=== PATIENT | male | born 1950 | race African-American/Black ===

== ENCOUNTER 2016-12-13 05:27 | Inpatient (IN) | payer MEDICARE, OTHER ==
[~2016-12-13] VITALS: Ht 185.4 cm; Wt 72.6 kg
--- NOTE | 2016-12-13 05:44 | Emergency Room Report ---
History of Present Illness General Chief Complaint: Chest Pain Source: Patient Present Illness HPI Is a 66-year-old male with history hypertension. He presents with chest pain awoke him up from sleep. Pain is substernal. Radiate to the left side. He said he felt hot and flushed. No diaphoresis. No exertional component. Exertion does not make it worse. Rated the pain is 10 out of 10. He called 911. EMS gave him nitroglycerin and aspirin. His pain is now down to 1/10. Denies any other complaint. Allergies: Coded Allergies: No Known Allergies (Unverified , 12/13/16) Patient History Past Medical History: see triage record, old chart reviewed, HTN Past Surgical History: other Pertinent Family History: none Social History: Denies: alcohol use, drug use, smoking Immunizations: other Reviewed Nursing Documentation: PMH: Agreed, PSxH: Agreed Nursing Documentation-PMH Hx Hypertension: Yes Hx Cancer: Yes - squamous cell carcinoma Review of Systems Eye: Denies: blurred vision, eye pain ENT: Denies: ear pain, nose congestion, throat swelling Respiratory: Denies: cough, shortness of breath Cardiovascular: Reports: chest pain, Denies: palpitations Gastrointestinal: Denies: abdominal pain, diarrhea, nausea, vomiting Musculoskeletal: Denies: back pain, joint pain Skin: Denies: rash Neurological: Denies: headache, numbness Endocrine: Denies: increased thirst, increased urine Hematologic/Lymphatic: Denies: easy bruising All Other Systems: negative except mentioned in HPI Physical Exam Vital Signs Date Time Temp Pulse Resp B/P Pulse Ox O2 Delivery O2 Flow Rate FiO2 12/13/16 05:28 97.5 85 14 146/97 98 Room Air vitals remarkable Sp02 EP Interpretation: reviewed, normal General Appearance: well appearing, no apparent distress, alert Head: normocephalic, atraumatic Eyes: bilateral eye EOMI, bilateral eye PERRL ENT: hearing grossly normal, normal pharynx Neck: full range of motion, supple, no meningismus Respiratory: chest non-tender, lungs clear, normal breath sounds Cardiovascular #1: regular rate, rhythm, no murmur Gastrointestinal: normal bowel sounds, non tender, no mass, no organomegaly, no bruit, non-distended Musculoskeletal: back normal, gait/station normal, normal range of motion Psychiatric: anxious Skin: warm/dry Medical Decision Making Diagnostic Impression: Primary Impression: Chest pain Qualified Codes: R07.9 - Chest pain, unspecified Additional Impression: ACS (acute coronary syndrome) ER Course Patient presents with chest pain. Pain resolved with nitroglycerin. Does have some nonspecific ST changes on EKG. We'll get for serial EKG, troponin and cardiac workup. Laboratory Tests Test 12/13/16 05:20 White Blood Count 4.5 K/UL (4.8-10.8) L Red Blood Count 5.22 M/UL (4.70-6.10) Hemoglobin 12.1 G/DL (14.2-18.0) L Hematocrit 39.0 % (42.0-52.0) L Mean Corpuscular Volume 75 FL (80-99) L Mean Corpuscular Hemoglobin 23.2 PG (27.0-31.0) L Mean Corpuscular Hemoglobin Concent 31.0 G/DL (32.0-36.0) L Red Cell Distribution Width 13.5 % (11.6-14.8) Platelet Count 141 K/UL (150-450) L Mean Platelet Volume 7.6 FL (6.5-10.1) Neutrophils (%) (Auto) 53.5 % (45.0-75.0) Lymphocytes (%) (Auto) 31.0 % (20.0-45.0) Monocytes (%) (Auto) 10.6 % (1.0-10.0) H Eosinophils (%) (Auto) 3.4 % (0.0-3.0) H Basophils (%) (Auto) 1.5 % (0.0-2.0) Sodium Level 142 mEQ/L (135-145) Potassium Level 3.5 mEQ/L (3.4-4.9) Chloride Level 106 mEQ/L (98-107) Carbon Dioxide Level 25 mEQ/L (20-30) Anion Gap 11 (5-15) Blood Urea Nitrogen 18 mg/dL (7-23) Creatinine 1.0 mg/dL (0.7-1.2) Estimat Glomerular Filtration Rate > 60 mL/min (>60) Glucose Level 111 mg/dL (74-106) H Calcium Level 8.1 mg/dL (8.6-10.2) L Total Bilirubin 0.3 mg/dL (0.0-1.2) Aspartate Amino Transf (AST/SGOT) 15 U/L (5-40) Alanine Aminotransferase (ALT/SGPT) 14 U/L (3-41) Alkaline Phosphatase 38 U/L (40-129) L Total Creatine Kinase 125 U/L (38-174) Creatine Kinase MB 1.8 ng/mL (< 6.7) Creatine Kinase MB Relative Index 1.4 Troponin I < 0.30 ng/mL (<=0.30) Total Protein 5.9 g/dL (6.6-8.7) L Albumin 3.9 g/dL (3.5-5.2) Globulin 2.0 g/dL Albumin/Globulin Ratio 1.9 (1.0-2.7) Lab Results Impression labs unremarkable EKG Diagnostic Results EKG Time: 05:43 EP Interpretation: 90 Rate: normal Rhythm: NSR ST Segments: other - NSST changes Rhythm Strip Diag. Results Rhythm Strip Time: 05:44 EP Interpretation: yes Rate: 88 Rhythm: NSR, no PVC's, no ectopy, other - Nonspecific ST changes Chest X-Ray Diagnostic Results Chest X-Ray Diagnostic Results : Chest X-Ray Ordered: Yes # of Views/Limited/Complete: 1 View Indication: Chest Pain EP Interpretation: Yes Interpretation: no consolidation, no effusion, no pneumothorax Impression: No acute disease Interpreting ER Provider: Electronically signed by Sumit Rosario MD Last Vital Signs Date Time Temp Pulse Resp B/P Pulse Ox O2 Delivery O2 Flow Rate FiO2 12/13/16 05:28 97.5 85 14 146/97 98 Room Air Status: improved Disposition: ADMITTED INPATIENT Condition: Serious SUMIT ROSARIO M.D. Dec 13, 2016 05:44
[2016-12-13 05:45] VITALS: BP 142/95
[2016-12-13 05:57] LABS: BASOPHILS % (AUTO) 1.5 % (0.0-2.0); EOSINOPHILS % (AUTO) 3.4 % (0.0-3.0); MEAN CORPUSCULAR HEMOGLOBIN 23.2 PG (27.0-31.0); MEAN CORPUSCULAR VOLUME 75 FL (80-99); MEAN PLATELET VOLUME 7.6 FL (6.5-10.1); MONOCYTES % (AUTO) 10.6 % (1.0-10.0); NEUTROPHILS % (AUTO) 53.5 % (45.0-75.0); PLATELET COUNT 141 K/UL (150-450); RED BLOOD COUNT 5.22 M/UL (4.70-6.10); RED CELL DISTRIBUTION WIDTH 13.5 % (11.6-14.8); WHITE BLOOD COUNT 4.5 K/UL (4.8-10.8)
[2016-12-13 06:08] LABS: ALANINE AMINOTRANSFERASE 14 U/L (3-41); ALBUMIN/GLOBULIN RATIO 1.9 (1.0-2.7); ANION GAP 11 (5-15); ASPARTATE AMINO TRANSFERASE 15 U/L (5-40); CALCIUM 8.1 mg/dL (8.6-10.2); CARBON DIOXIDE 25 mEQ/L (20-30); CHLORIDE 106 mEQ/L (98-107); GLOMERULAR FILTRATION RATE > 60 mL/min (>60); HEMOLYSIS 5; POTASSIUM 3.5 mEQ/L (3.4-4.9); SODIUM 142 mEQ/L (135-145); TOTAL PROTEIN 5.9 g/dL (6.6-8.7)
[2016-12-13 06:13] LABS: TROPONIN I < 0.30 ng/mL (<=0.30)
[2016-12-13 06:19] LABS: CKMB 1.8 ng/mL (< 6.7)
[2016-12-13] MEDS ORDERED: DIVALPROEX SOD500 MG PO (06:30)
[2016-12-13] MEDS ORDERED: NORVASC2.5 MG ORAL (06:30)
[2016-12-13] MEDS ORDERED: VITAMIN D1000 UNI1 ORAL (06:30)
[2016-12-13] MEDS ORDERED: MAGNESIUM400 M1 PO (06:30)
[2016-12-13] MEDS ORDERED: LISINOPRIL40 MG ORAL (06:30)
[2016-12-13] MEDS ORDERED: RIBOFLAVIN50 MG PO (06:30)
[2016-12-13] MEDS ORDERED: AMITRIPTYLINE25 MG ORAL (06:30)
[2016-12-13] MEDS ORDERED: ZOCOR20 M1 ORAL (06:30)
[2016-12-13 06:35] VITALS: BP 131/79
[2016-12-13 07:58] LABS: APPEARANCE,URINE CLEAR; KETONES,URINE 1+ (NEGATIVE); LEUKOCYTE ESTERASE ,URINE NEGATIVE (NEGATIVE); NITRITE,URINE NEGATIVE (NEGATIVE); PH,URINE 6 (4.5-8.0); PROTEIN,URINE NEGATIVE (NEGATIVE); UROBILINOGEN,URINE 1 MG/DL (0.0-1.0)
[2016-12-13 08:00] VITALS: BP 145/91
--- NOTE | 2016-12-13 09:37 | Diagnostic Imaging Report ---
Clinical history: As in header. Technique: Portable AP chest radiograph was obtained. Comparison: None Findings: The lungs are well inflated and clear. There is no pneumonia or pulmonary edema. There is no pleural effusion or pneumothorax. The cardiac and mediastinal silhouettes are normal in appearance. The bony thorax is unremarkable. Impression: No evidence of acute disease.
[2016-12-13 11:39] VITALS: BP 147/94
[2016-12-13] MEDS ORDERED: Nitroglycerin Subl 0.4mg tab (Bottle Of 25) SL PRN (15:00)
[2016-12-13] MEDS: Vitamin D 1000 IU Tab ORAL SCH (15:26)
[2016-12-13] MEDS: Lisinopril 20mg tab ORAL SCH (15:27)
[2016-12-13] MEDS: Magnesium Oxide 400mg tab ORAL SCH (15:28)
[2016-12-13 15:47] VITALS: BP 123/98
[2016-12-13] MEDS: Enoxaparin 40mg Inj SUBQ SCH (17:40)
[2016-12-13] MEDS ORDERED: Magnesium Oxide 400mg tab ORAL SCH (18:00)
[2016-12-13 18:03] LABS: TROPONIN I < 0.30 ng/mL (<=0.30)
--- NOTE | 2016-12-13 18:19 | Cardiology Progress Note ---
Assessment/Plan Assessment/Plan The patient is seen and examined, full consult will be dictated. Objective Last 24 Hour Vital Signs Date Time Temp Pulse Resp B/P Pulse Ox O2 Delivery O2 Flow Rate FiO2 12/13/16 16:00 64 12/13/16 15:47 97.0 68 18 123/98 98 Room Air 12/13/16 15:27 147/94 12/13/16 15:27 59 147/94 12/13/16 12:00 59 12/13/16 11:39 97.2 58 18 147/94 98 Room Air 12/13/16 10:35 97.7 12/13/16 10:04 59 14 143/82 97 Room Air 12/13/16 08:00 97.7 59 13 145/91 100 Room Air 12/13/16 06:35 77 17 131/79 98 Room Air 12/13/16 05:45 77 21 Room Air 12/13/16 05:45 97.5 77 20 142/95 98 Room Air 12/13/16 05:28 97.5 85 14 146/97 98 Room Air Laboratory Tests Test 12/13/16 05:20 12/13/16 07:45 12/13/16 16:57 White Blood Count 4.5 K/UL (4.8-10.8) L Red Blood Count 5.22 M/UL (4.70-6.10) Hemoglobin 12.1 G/DL (14.2-18.0) L Hematocrit 39.0 % (42.0-52.0) L Mean Corpuscular Volume 75 FL (80-99) L Mean Corpuscular Hemoglobin 23.2 PG (27.0-31.0) L Mean Corpuscular Hemoglobin Concent 31.0 G/DL (32.0-36.0) L Red Cell Distribution Width 13.5 % (11.6-14.8) Platelet Count 141 K/UL (150-450) L Mean Platelet Volume 7.6 FL (6.5-10.1) Neutrophils (%) (Auto) 53.5 % (45.0-75.0) Lymphocytes (%) (Auto) 31.0 % (20.0-45.0) Monocytes (%) (Auto) 10.6 % (1.0-10.0) H Eosinophils (%) (Auto) 3.4 % (0.0-3.0) H Basophils (%) (Auto) 1.5 % (0.0-2.0) Sodium Level 142 mEQ/L (135-145) Potassium Level 3.5 mEQ/L (3.4-4.9) Chloride Level 106 mEQ/L (98-107) Carbon Dioxide Level 25 mEQ/L (20-30) Anion Gap 11 (5-15) Blood Urea Nitrogen 18 mg/dL (7-23) Creatinine 1.0 mg/dL (0.7-1.2) Estimat Glomerular Filtration Rate > 60 mL/min (>60) Glucose Level 111 mg/dL (74-106) H Calcium Level 8.1 mg/dL (8.6-10.2) L Total Bilirubin 0.3 mg/dL (0.0-1.2) Aspartate Amino Transf (AST/SGOT) 15 U/L (5-40) Alanine Aminotransferase (ALT/SGPT) 14 U/L (3-41) Alkaline Phosphatase 38 U/L (40-129) L Total Creatine Kinase 125 U/L (38-174) Creatine Kinase MB 1.8 ng/mL (< 6.7) Creatine Kinase MB Relative Index 1.4 Troponin I < 0.30 ng/mL (<=0.30) < 0.30 ng/mL (<=0.30) Total Protein 5.9 g/dL (6.6-8.7) L Albumin 3.9 g/dL (3.5-5.2) Globulin 2.0 g/dL Albumin/Globulin Ratio 1.9 (1.0-2.7) Urine Color Yellow Urine Appearance Clear Urine pH 6 (4.5-8.0) Urine Specific Mccloud 1.015 (1.005-1.035) Urine Protein Negative (NEGATIVE) Urine Glucose (UA) Negative (NEGATIVE) Urine Ketones 1+ (NEGATIVE) H Urine Occult Blood Negative (NEGATIVE) Urine Nitrite Negative (NEGATIVE) Urine Bilirubin Negative (NEGATIVE) Urine Urobilinogen 1 MG/DL (0.0-1.0) H Urine Leukocyte Esterase Negative (NEGATIVE) Urine Opiates Screen Negative (NEGATIVE) Urine Barbiturates Screen Negative (NEGATIVE) Phencyclidine (PCP) Screen Negative (NEGATIVE) Urine Amphetamines Screen Negative (NEGATIVE) Urine Benzodiazepines Screen Negative (NEGATIVE) Urine Cocaine Screen Negative (NEGATIVE) Urine Marijuana (THC) Screen Negative (NEGATIVE) SAMI GRAYSON Dec 13, 2016 18:19
[2016-12-13 19:53] LABS: HEMOLYSIS 4; IRON 118 ug/dL (59-158); TOTAL IRON BINDING CAPACITY 294 ug/dL (250-400)
[2016-12-13 20:00] VITALS: BP 144/86
[2016-12-13] MEDS: Depakote 500mg tab ORAL SCH (21:00)
[2016-12-13] MEDS: LORazepam Inj 2mg/ml 1ml IV PRN (23:24)
[2016-12-13] MEDS: D5 1/2NS 1,000 ML IV SCH (23:30)
[2016-12-14] VITALS (7 sets, daily range): BP systolic 139–156; BP diastolic 82–100
--- NOTE | 2016-12-14 02:15 | History and Physical Report ---
DATE OF ADMISSION: 12/13/2016 SOURCE OF INFORMATION: Patient and EMR. HISTORY OF PRESENT ILLNESS: The patient is a pleasant 66-year-old white male. The patient presented with chest pain for the last one to two days. Pain located in the left-sided precordial area with radiation to the left arm, associated with sweating. At the time of evaluation, the patient appears comfortable, and seen in the emergency room. The patient denies palpitations. Denies loss of consciousness. Denies any severe headache. REVIEW OF SYSTEMS: All 12 elements of review of systems reviewed with the patient and pertinent positive and negative are as mentioned above. PAST SURGICAL HISTORY: Left-sided . 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 ALLERGIES: NKDA. SOCIAL HISTORY: Positive prior history of smoking. Negative for illicit drug abuse or alcohol abuse. The patient is . The patient has children. FAMILY HISTORY: Reviewed and noncontributory. PHYSICAL EXAMINATION: VITAL SIGNS: Blood pressure 140/90, temperature 97.4, pulse rate 50 to 65, respiratory rate 18, pulse oximetry 98% on room air. HEENT: Head and neck, atraumatic and normocephalic. CHEST: Clear to auscultation. HEART: S1 and S2. Regular rate and rhythm. ABDOMEN: Soft. No organomegaly. MUSCULOSKELETAL: No gross focal motor deficit. NEUROLOGY: The patient is awake, alert and oriented x3. LABORATORY AND DIAGNOSTIC DATA: Dated 12/13/2016 showed WBC 4.5, hemoglobin 12.1, platelets 141,000. Sodium 142, potassium 3.5, BUN 15, and creatinine 1. Calcium 8.1. Glucose 110. UA unremarkable. ASSESSMENT AND PLAN: 1. Chest pain in a patient with acute moderate risk for acute coronary syndrome. We will monitor. 2. Hypertension. 3. Hyperlipidemia. 4. History of squamous cell carcinoma of the laryngopharyngeal lesion status post completion of radiation. 5. Thrombocytopenia. 6. Anemia. 7. Gastrointestinal and deep vein thrombosis prophylaxis. PLAN OF CARE: Cardiology with Dr. Diaz is consulted. Continue with aspirin 325 mg. We Will obtain 2D echo. Nasal oxygen. Pain management. As needed nitroglycerin. Melba Ugarte M.D. DR: Nasir JOB#: [id number] CC:
[2016-12-14] MEDS: Vitamin D 1000 IU Tab ORAL SCH (08:27)
[2016-12-14] MEDS: Magnesium Oxide 400mg tab ORAL SCH (08:28)
[2016-12-14] MEDS: Lisinopril 20mg tab ORAL SCH (08:28)
[2016-12-14] MEDS: Enoxaparin 40mg Inj SUBQ SCH (08:33)
[2016-12-14 08:35] LABS: TROPONIN I < 0.30 ng/mL (<=0.30)
[2016-12-14 08:42] LABS: CHOLESTEROL/HDL RATIO 2.6 (3.3-4.4)
--- NOTE | 2016-12-14 11:25 | General Progress Note ---
Assessment/Plan Status: stable Assessment/Plan 1. Chest pain in a patient with acute moderate risk for acute coronary syndrome. We will monitor. 2. Hypertension. 3. Hyperlipidemia. 4. History of squamous cell carcinoma of the laryngopharyngeal lesion status post completion of radiation. 5. Thrombocytopenia. 6. Anemia. 7. Gastrointestinal and deep vein thrombosis prophylaxis. Plan: current cardiac montioring. Pending completion of cardiac workup will check FOBT Subjective ROS Limited/Unobtainable: No Constitutional: Reports: no symptoms HEENT: Reports: no symptoms Cardiovascular: Reports: chest pain Respiratory: Reports: no symptoms Allergies: Coded Allergies: No Known Allergies (Unverified , 12/13/16) Objective Last 24 Hour Vital Signs Date Time Temp Pulse Resp B/P Pulse Ox O2 Delivery O2 Flow Rate FiO2 12/14/16 08:29 71 150/95 12/14/16 08:28 150/95 12/14/16 08:00 71 12/14/16 08:00 97.7 71 20 150/95 99 Room Air 12/14/16 04:00 73 12/14/16 04:00 97.2 97 19 153/97 99 Room Air 12/14/16 00:00 97.0 65 22 146/82 98 Room Air 12/14/16 00:00 68 12/13/16 20:00 97.0 68 20 144/86 99 Room Air 12/13/16 20:00 68 12/13/16 16:00 64 12/13/16 15:47 97.0 68 18 123/98 98 Room Air 12/13/16 15:27 147/94 12/13/16 15:27 59 147/94 12/13/16 12:00 59 12/13/16 11:39 97.2 58 18 147/94 98 Room Air Intake and Output 12/13/16 12/14/16 19:00 07:00 Intake Total 240 ml 375 ml Balance 240 ml 375 ml Intake Oral 240 ml IV Total 375 ml # Voids 2 1 Laboratory Tests 12/13/16 16:57: Iron Level 118, Total Iron Binding Capacity 294, Percent Iron Saturation 40, Unsaturated Iron Binding 176, Troponin I < 0.30 12/14/16 07:35: Troponin I < 0.30, Ferritin 133, Triglycerides Level 176H, Cholesterol Level 129 , LDL Cholesterol 44L, HDL Cholesterol 50, Cholesterol/HDL Ratio 2.6L Height (Feet): 6 Height (Inches): 1.00 Weight (Pounds): 160 General Appearance: WD/WN EENT: PERRL/EOMI Neck: supple Cardiovascular: normal rate Respiratory/Chest: lungs clear Abdomen: soft Extremities: non-tender Neurologic: display department manager II-XII grossly normal Melba Ugarte MD Dec 14, 2016 11:24
--- NOTE | 2016-12-14 15:46 | Diagnostic Imaging Report ---
Indications: Chest pain, hypertension Technique: Single day single isotope protocol utilized. Initially, resting images obtained using IV administration 9.3 millicuries 99M technetium Myoview. Subsequently, patient underwent treadmill stress testing. See cardiology report for details. During adenosine infusion, IV administration 31.6 mCi 99 M technetium Myoview. SPECT and planar images obtained. SPECT images gated to 8 phases of the cardiac cycle were also obtained, and reformatted into cine images for evaluation of ejection fraction. Comparison: None Findings: Per cardiology report, patient experienced no symptoms. Cardiology report does not describe EKG findings. Patient reached peak heart rate 137 beats per minute, and excess of the target heart rate 132 beats per minute. Imaging demonstrates normal post stress perfusion, no fixed nor reversible perfusion defects. Normal cardiac chamber size.. Calculated post stress ejection fraction 61%. No wall motion abnormality demonstrated Impression: Nonischemic clinical response to pharmacologic stress, per cardiology report Ischemic electrocardiographic response to pharmacologic stress, per cardiology report No imaging findings to suggest ischemia, at level of stress achieved. Calculated post stress ejection fraction 61%
[2016-12-14] MEDS: D5 1/2NS 1,000 ML IV SCH (17:47)
--- NOTE | 2016-12-14 17:53 | Cardiology Report ---
APPROVED REPORT EXAM: Two-dimensional and M-mode echocardiogram with Doppler and color Doppler. INDICATION Chest Pain M-Mode DIMENSIONS IVSd1.1 (0.7-1.1cm)Left Atrium (MM)3.6 (1.6-4.0cm) LVDd4.6 (3.5-5.6cm)Aortic Root2.7 (2.0-3.7cm) PWd0.8 (0.7-1.1cm)Aortic Cusp Exc.1.7 (1.5-2.0cm) LVDs3.4 (2.5-4.0cm) PWs1.0 cm Technically difficult study due to poor acoustic windows. Normal left ventricular chamber size, systolic function and wall motion. Left ventricular ejection fraction estimated to be 55-60%. No left ventricular hypertrophy. Small posterior pericardial effusion pressing against right atrial wall. All other cardiac chamber sizes are within normal limits. Focal aortic valve sclerosis with adequate cusp excursion Thickened mitral valve leaflets with normal excursion. Mitral annulus and aortic root calcification. Pulmonic valve not well visualized. Normal tricuspid valve structure. IVC is normal in size with physiological collapse. Mobile IAS moving from left to right. A color flow and spectral Doppler study was performed and revealed: No aortic regurgitation. Trace mitral regurgitation. Left ventricular diastolic dysfunction grade 1. No tricuspid regurgitation. Tricuspid systolic velocities suggests peak right ventricular systolic pressure of 11 mmHg
--- NOTE | 2016-12-14 18:13 | Cardiology Report ---
APPROVED REPORT EKG Measurement Heart [id number] [place] [id number] Normal sinus rhythm Nonspecific ST and T wave abnormality Abnormal ECG
[2016-12-14] MEDS: Depakote 500mg tab ORAL SCH (21:11)
--- NOTE | 2016-12-14 23:57 | Cardiology Progress Note ---
Assessment/Plan Assessment/Plan 1. Atypical chest pain, awaiting report of the treadmill stress cardiolite test. 2. HTN, continue lisinopril and amlodipine. 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 Subjective Subjective Denies chest pain or SOB. SR at 75. Objective Last 24 Hour Vital Signs Date Time Temp Pulse Resp B/P Pulse Ox O2 Delivery O2 Flow Rate FiO2 12/14/16 20:09 98.2 76 20 148/98 97 Room Air 12/14/16 16:00 68 12/14/16 16:00 97.5 69 20 139/84 99 Room Air 12/14/16 12:00 97.2 62 20 143/100 97 Room Air 12/14/16 11:57 74 12/14/16 08:29 71 150/95 12/14/16 08:28 150/95 12/14/16 08:00 71 12/14/16 08:00 97.7 71 20 150/95 99 Room Air 12/14/16 04:00 73 12/14/16 04:00 97.2 97 19 153/97 99 Room Air 12/14/16 00:00 97.0 65 22 146/82 98 Room Air 12/14/16 00:00 68 Intake and Output 12/13/16 12/14/16 19:00 07:00 Intake Total 240 ml 375 ml Balance 240 ml 375 ml Intake Oral 240 ml IV Total 375 ml # Voids 2 1 2D Echo: LVEF 55-60%, Aneurysmal IAS, RVSP 11 mmHg Laboratory Tests Test 12/14/16 07:35 Ferritin 133 ng/mL (10-230) Troponin I < 0.30 ng/mL (<=0.30) Triglycerides Level 176 mg/dL (< 150) H Cholesterol Level 129 mg/dL (< 200) LDL Cholesterol 44 mg/dL (60-99) L HDL Cholesterol 50 mg/dL (> 60) Cholesterol/HDL Ratio 2.6 (3.3-4.4) L Objective HEENT: atraumatic and normocephalic, PERRLA, EOMI NECK: Negative JVD, no carotid bruit CHEST: Clear to auscultation. HEART: S1 and S2. Regular rate and rhythm, no murmurs, gallops or rubs. ABDOMEN: Soft, non-tender, non-distended, No organomegaly, + BS MUSCULOSKELETAL: No gross focal motor deficit, no edema, clubbing or cyanosis. SAMI GRAYSON Dec 14, 2016 23:57
[2016-12-15] MEDS: LORazepam Inj 2mg/ml 1ml IV PRN ×2 (00:41→23:13)
[2016-12-15 04:22] VITALS: BP 141/81
[2016-12-15 08:29] VITALS: BP 144/77
--- NOTE | 2016-12-15 09:00 | General Progress Note ---
Assessment/Plan Status: stable Assessment/Plan 1. Chest pain in a patient with acute moderate risk for acute coronary syndrome. We will monitor. 2. Hypertension. 3. Hyperlipidemia. 4. History of squamous cell carcinoma of the laryngopharyngeal lesion status post completion of radiation. 5. Thrombocytopenia. 6. Anemia. 7. Gastrointestinal and deep vein thrombosis prophylaxis. Plan: current cardiac montioring. Pending completion of cardiac workup and stress test will check FOBT Subjective ROS Limited/Unobtainable: No Constitutional: Reports: no symptoms HEENT: Reports: no symptoms Cardiovascular: Reports: no symptoms Respiratory: Reports: no symptoms Allergies: Coded Allergies: No Known Allergies (Unverified , 12/13/16) Objective Last 24 Hour Vital Signs Date Time Temp Pulse Resp B/P Pulse Ox O2 Delivery O2 Flow Rate FiO2 12/15/16 08:29 97.5 107 20 144/77 99 Room Air 12/15/16 05:17 76 12/15/16 04:22 97.5 75 20 141/81 94 Room Air 12/15/16 04:00 72 12/15/16 00:00 72 12/14/16 23:54 98.2 68 20 156/90 97 Room Air 12/14/16 20:09 98.2 76 20 148/98 97 Room Air 12/14/16 16:00 68 12/14/16 16:00 97.5 69 20 139/84 99 Room Air 12/14/16 12:00 97.2 62 20 143/100 97 Room Air 12/14/16 11:57 74 Intake and Output 12/14/16 12/15/16 19:00 07:00 Intake Total 510.8 ml 600 ml Balance 510.8 ml 600 ml Intake Oral 450 ml IV Total 60.8 ml 600 ml # Voids 5 2 # Bowel Movements 2 Height (Feet): 6 Height (Inches): 1.00 Weight (Pounds): 160 General Appearance: no apparent distress EENT: PERRL/EOMI Neck: supple Cardiovascular: normal rate Respiratory/Chest: lungs clear Abdomen: soft Extremities: non-tender Neurologic: health care legal assistant II-XII grossly normal Melba Ugarte MD Dec 15, 2016 09:00
[2016-12-15] MEDS: Magnesium Oxide 400mg tab ORAL SCH (09:39)
[2016-12-15] MEDS: Vitamin D 1000 IU Tab ORAL SCH (09:39)
[2016-12-15] MEDS: Lisinopril 20mg tab ORAL SCH (09:40)
[2016-12-15] MEDS: Enoxaparin 40mg Inj SUBQ SCH (09:43)
[2016-12-15 12:00] VITALS: BP 120/73
[2016-12-15] MEDS: D5 1/2NS 1,000 ML IV SCH (14:18)
[2016-12-15] MEDS: Guaifenesin/DM 10ml syrup ORAL PRN ×3 (14:31→20:50)
[2016-12-15 16:15] VITALS: BP 133/85
[2016-12-15 20:10] VITALS: BP 131/82
[2016-12-15] MEDS: Depakote 500mg tab ORAL SCH (20:46)
[2016-12-16 00:14] VITALS: BP 147/88
[2016-12-16] MEDS: Guaifenesin/DM 10ml syrup ORAL PRN ×2 (00:55→09:49)
[2016-12-16 03:56] VITALS: BP 156/87
[2016-12-16 08:26] VITALS: BP 127/73
--- NOTE | 2016-12-16 08:48 | General Progress Note ---
Assessment/Plan Status: stable Assessment/Plan 1. Chest pain in a patient with acute moderate risk for acute coronary syndrome. We will monitor. 2. Hypertension. 3. Hyperlipidemia. 4. History of squamous cell carcinoma of the laryngopharyngeal lesion status post completion of radiation. 5. Thrombocytopenia. 6. Anemia. 7. Gastrointestinal and deep vein thrombosis prophylaxis. Plan: current cardiac monitoring. Pending completion of cardiac workup post inconclusive stress test Subjective ROS Limited/Unobtainable: No Cardiovascular: Reports: chest pain, no symptoms Respiratory: Reports: no symptoms Gastrointestinal/Abdominal: Reports: no symptoms Allergies: Coded Allergies: No Known Allergies (Unverified , 12/13/16) Objective Last 24 Hour Vital Signs Date Time Temp Pulse Resp B/P Pulse Ox O2 Delivery O2 Flow Rate FiO2 12/16/16 08:26 98.2 94 19 127/73 95 Room Air 12/16/16 04:00 82 12/16/16 03:56 98.8 80 21 156/87 96 Room Air 12/16/16 00:14 98.5 79 19 147/88 95 Room Air 12/16/16 00:00 82 12/15/16 20:10 97.8 73 20 131/82 98 Room Air 12/15/16 20:00 70 12/15/16 16:15 97.9 74 16 133/85 97 Room Air 12/15/16 16:00 72 12/15/16 12:00 68 12/15/16 12:00 98.4 83 16 120/73 95 Room Air 12/15/16 09:40 144/77 12/15/16 09:39 107 144/77 Intake and Output 12/15/16 12/16/16 19:00 07:00 Intake Total 1370 ml 720 ml Balance 1370 ml 720 ml Intake Oral 770 ml 120 ml IV Total 600 ml 600 ml # Voids 3 5 Laboratory Tests 12/16/16 07:30: White Blood Count [Pending], Red Blood Count [Pending], Hemoglobin [Pending], Hematocrit [Pending], Mean Corpuscular Volume [Pending], Mean Corpuscular Hemoglobin [Pending], Mean Corpuscular Hemoglobin Concent [Pending], Red Cell Distribution Width [Pending], Platelet Count [Pending], Mean Platelet Volume [ Pending], Neutrophils (%) (Auto) [Pending], Lymphocytes (%) (Auto) [Pending], Monocytes (%) (Auto) [Pending], Eosinophils (%) (Auto) [Pending], Basophils (%) (Auto) [Pending], Sodium Level [Pending], Potassium Level [Pending], Chloride Level [Pending], Carbon Dioxide Level [Pending], Blood Urea Nitrogen [Pending], Creatinine [Pending], Estimat Glomerular Filtration Rate [Pending], Glucose Level [Pending], Calcium Level [Pending], Total Bilirubin [Pending], Aspartate Amino Transf (AST/SGOT) [Pending], Alanine Aminotransferase (ALT/SGPT) [Pending] , Alkaline Phosphatase [Pending], Total Protein [Pending], Albumin [Pending], Globulin [Pending] Height (Feet): 6 Height (Inches): 1.00 Weight (Pounds): 160 General Appearance: no apparent distress EENT: PERRL/EOMI Neck: supple Cardiovascular: normal rate Respiratory/Chest: lungs clear Abdomen: soft Extremities: non-tender Neurologic: human services supervisor II-XII grossly normal Melba Ugarte MD Dec 16, 2016 08:48
[2016-12-16 08:49] LABS: BASOPHILS % (AUTO) 1.5 % (0.0-2.0); EOSINOPHILS % (AUTO) 2.7 % (0.0-3.0); LYMPHOCYTES % (AUTO) 21.9 % (20.0-45.0); MEAN CORPUSCULAR HEMOGLOBIN 23.1 PG (27.0-31.0); MEAN CORPUSCULAR HGB CONC 31.5 G/DL (32.0-36.0); MEAN CORPUSCULAR VOLUME 73 FL (80-99); MEAN PLATELET VOLUME 8.8 FL (6.5-10.1); MONOCYTES % (AUTO) 7.9 % (1.0-10.0); NEUTROPHILS % (AUTO) 66.1 % (45.0-75.0); PLATELET COUNT 142 K/UL (150-450); RED BLOOD COUNT 5.41 M/UL (4.70-6.10); RED CELL DISTRIBUTION WIDTH 13.1 % (11.6-14.8); WHITE BLOOD COUNT 4.8 K/UL (4.8-10.8)
[2016-12-16 08:51] LABS: ALANINE AMINOTRANSFERASE 15 U/L (3-41); ALBUMIN/GLOBULIN RATIO 1.6 (1.0-2.7); ANION GAP 12 (5-15); ASPARTATE AMINO TRANSFERASE 16 U/L (5-40); CALCIUM 9.2 mg/dL (8.6-10.2); CARBON DIOXIDE 27 mEQ/L (20-30); CHLORIDE 101 mEQ/L (98-107); CREATININE 1.2 mg/dL (0.7-1.2); GLOMERULAR FILTRATION RATE > 60 mL/min (>60); HEMOLYSIS 7; POTASSIUM 4.4 mEQ/L (3.4-4.9); SODIUM 140 mEQ/L (135-145); TOTAL PROTEIN 6.7 g/dL (6.6-8.7)
--- NOTE | 2016-12-16 09:18 | Cardiology Progress Note ---
Assessment/Plan Assessment/Plan 1. Atypical chest pain, non-ischemic stress test, can be discharged home. 2. HTN, continue lisinopril and amlodipine. 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 Subjective Subjective Denies chest pain or SOB. Stress test was non-ischemic. Objective Last 24 Hour Vital Signs Date Time Temp Pulse Resp B/P Pulse Ox O2 Delivery O2 Flow Rate FiO2 12/16/16 08:26 98.2 94 19 127/73 95 Room Air 12/16/16 04:00 82 12/16/16 03:56 98.8 80 21 156/87 96 Room Air 12/16/16 00:14 98.5 79 19 147/88 95 Room Air 12/16/16 00:00 82 12/15/16 20:10 97.8 73 20 131/82 98 Room Air 12/15/16 20:00 70 12/15/16 16:15 97.9 74 16 133/85 97 Room Air 12/15/16 16:00 72 12/15/16 12:00 68 12/15/16 12:00 98.4 83 16 120/73 95 Room Air 12/15/16 09:40 144/77 12/15/16 09:39 107 144/77 Intake and Output 12/15/16 12/16/16 19:00 07:00 Intake Total 1370 ml 720 ml Balance 1370 ml 720 ml Intake Oral 770 ml 120 ml IV Total 600 ml 600 ml # Voids 3 5 2D Echo: LVEF 55-60%, Aneurysmal IAS, RVSP 11 mmHg Laboratory Tests Test 12/16/16 07:30 White Blood Count 4.8 K/UL (4.8-10.8) Red Blood Count 5.41 M/UL (4.70-6.10) Hemoglobin 12.5 G/DL (14.2-18.0) L Hematocrit 39.7 % (42.0-52.0) L Mean Corpuscular Volume 73 FL (80-99) L Mean Corpuscular Hemoglobin 23.1 PG (27.0-31.0) L Mean Corpuscular Hemoglobin Concent 31.5 G/DL (32.0-36.0) L Red Cell Distribution Width 13.1 % (11.6-14.8) Platelet Count 142 K/UL (150-450) L Mean Platelet Volume 8.8 FL (6.5-10.1) Neutrophils (%) (Auto) 66.1 % (45.0-75.0) Lymphocytes (%) (Auto) 21.9 % (20.0-45.0) Monocytes (%) (Auto) 7.9 % (1.0-10.0) Eosinophils (%) (Auto) 2.7 % (0.0-3.0) Basophils (%) (Auto) 1.5 % (0.0-2.0) Sodium Level 140 mEQ/L (135-145) Potassium Level 4.4 mEQ/L (3.4-4.9) Chloride Level 101 mEQ/L (98-107) Carbon Dioxide Level 27 mEQ/L (20-30) Anion Gap 12 (5-15) Blood Urea Nitrogen 14 mg/dL (7-23) Creatinine 1.2 mg/dL (0.7-1.2) Estimat Glomerular Filtration Rate > 60 mL/min (>60) Glucose Level 117 mg/dL (74-106) H Calcium Level 9.2 mg/dL (8.6-10.2) Total Bilirubin 0.3 mg/dL (0.0-1.2) Aspartate Amino Transf (AST/SGOT) 16 U/L (5-40) Alanine Aminotransferase (ALT/SGPT) 15 U/L (3-41) Alkaline Phosphatase 46 U/L (40-129) Total Protein 6.7 g/dL (6.6-8.7) Albumin 4.2 g/dL (3.5-5.2) Globulin 2.5 g/dL Albumin/Globulin Ratio 1.6 (1.0-2.7) Objective HEENT: atraumatic and normocephalic, PERRLA, EOMI NECK: Negative JVD, no carotid bruit CHEST: Clear to auscultation. HEART: S1 and S2. Regular rate and rhythm, no murmurs, gallops or rubs. ABDOMEN: Soft, non-tender, non-distended, No organomegaly, + BS MUSCULOSKELETAL: No gross focal motor deficit, no edema, clubbing or cyanosis. SAMI GRAYSON Dec 16, 2016 09:18
[2016-12-16] MEDS: Lisinopril 20mg tab ORAL SCH (09:39)
[2016-12-16] MEDS: Vitamin D 1000 IU Tab ORAL SCH (09:39)
[2016-12-16] MEDS: Magnesium Oxide 400mg tab ORAL SCH (09:40)
[2016-12-16] MEDS: Enoxaparin 40mg Inj SUBQ SCH (09:42)
[2016-12-16] MEDS: D5 1/2NS 1,000 ML IV SCH (09:45)
[2016-12-16 11:34] VITALS: BP 143/82
[2016-12-16] MEDS ORDERED: D5 1/2NS 1000ml IV ONE (11:59)
--- NOTE | 2016-12-17 18:06 | Discharge Summary ---
Discharge Summary Hospital Course Date of Admission Dec 13, 2016 at 06:58 Date of Discharge Dec 16, 2016 at 12:00 Admitting Diagnosis chest pain HPI Wenceslao Ball is a 66 year old male who was admitted on Dec 13, 2016 at 06:58 for Chest Pain Hospital Course [id number] Discharge Discharge Disposition Patient was discharged to Home (01) Discharge Diagnoses: Amirah Leslie NP Dec 17, 2016 18:06
--- NOTE | 2016-12-18 03:45 | Discharge Summary 2 SIG ---
DATE OF ADMISSION: 12/13/2016 DATE OF DISCHARGE: 12/16/2016 BUSINESS RELATIONSHIP MANAGER: Mack Diaz M.D. BRIEF HOSPITAL COURSE: The patient is a pleasant 66-year-old white male, who presented with chest pain for the last one to two days. The pain was located in the left side, precordial area with radiation to the left arm and associated sweating. On evaluation at ED, EKG showed normal sinus rhythm with no ST to T-wave changes. Chest x-ray showed no acute disease with no consolidation, effusion or pneumothorax. Troponin was negative. He was given aspirin and nitroglycerin by EMS and pain resolved with nitroglycerin. He was then admitted to telemetry for evaluation of chest pain as the patient has moderate risk for acute coronary syndrome. Cardiac enzymes were monitored. He was given aspirin and Lipitor. Urine toxicology was negative. He was continued on lisinopril and amlodipine for hypertension. Troponins has been negative. He underwent a non-ischemic treadmill stress test and the patient was eventually discharged to home. Advised to follow up with PMD. DISPOSITION: The patient was discharged home. DISCHARGE MEDICATIONS: Refer to medication list. FINAL DIAGNOSES: 1. Chest pain. 2. Hypertension. 3. Hyperlipidemia. 4. 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 5. Thrombocytopenia. 6. Anemia. Melba Ugarte M.D. I have been assigned to dictate discharge summary on this account and I was not involved in the patient's management. Amirah Leslie N.P. DR: JAYE JOB#: [id number] CC:
--- NOTE | 2016-12-30 08:09 | Physician Query ---
PLEASE COMPLETE THE DOCUMENT BEFORE SIGNING Dear Dr. 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 Questions asked do not imply particular answer is desired or expected. We greatly appreciate your clarification on this issue. Clinical Documentation States:BRIEF HOSPITAL COURSE: The patient is a pleasant 66-year-old white male, who presented with chest pain for the last one to two days. The pain was located in the left side, precordial area with radiation to the left arm and associated sweating. He was given aspirin and Lipitor. Urine toxicology was negative. He was continued on lisinopril and amlodipine for hypertension. Clinical Findings Show: EKG =showed normal sinus rhythm with no ST to T-wave changes. Troponin = negative CXR= No acute findings ECHO = EF = 55-60% Please document the suspected etiology of Chest Pain: a.Type: []Cardiac [x]Non-cardiac []Unspecified b.Etiology - cardiac [] Aortic dissection []Mitral valve prolapsed [] Acute myocardial infarction []Spasm of coronary arteries [] Coronary Artery Disease []Pericarditis c.Etiology - non-cardiac [x] Anxiety [x]Pleurisy [] Cancer []Pneumonia, type [x] Costochondritis []Pneumothorax [] GERD/Esophagitis []Pulmonary embolism [] Unable to determine []Other: Please also document in your Progress Notes and/or Discharge Summary and indicate if the condition was present on admission. Melba Ugarte ____12/30/16 Melba Ugarte M.D. Date & Time [facility]
== END 2016-12-16 12:00 | disposition home or self-care (01) | DRG 195 ==
LOC: EDBD 05:27 → EMR 05:45 → 2E 06:58 → EDBEDREQ 09:34 → 2E 16:29
DX: R09.1 Pleurisy (principal); D69.6 Thrombocytopenia, unspecified; I10 Essential (primary) hypertension; E78.5 Hyperlipidemia, unspecified; D64.9 Anemia, unspecified; Z87.891 Personal history of nicotine dependence; Z85.818 Personal history of malignant neoplasm of other sites of lip, oral cavity, and pharynx
CPT/HCPCS: 36415; 71010; 78452; 80053; 80061; 80300; 81003; 82550; 82553; 82728; 83540; 83550; 84484; 85025; 93005; 93017; 93306